=== PATIENT | male | born 1990 | race African-American/Black ===

== ENCOUNTER 2020-08-01 03:10 | Emergency (ER) | payer OTHER, SELFPAY ==
[2020-08-01 03:28] VITALS: BP 102/66; PULSE 66; RESP 18; TEMP 37.3; O2SAT 98; BMI 27.2
--- NOTE | 2020-08-01 04:16 | ED_ITS ---
HPI - Nausea/Vomiting/Diarrhea General Chief complaint: Nausea/Vomiting/Diarrhea Stated complaint: Vomiting Time Seen by Provider: 08/01/20 04:15 Source: patient Mode of arrival: ambulatory History of Present Illness HPI Narrative: 29-year-old male without significant past medical history presents with awakening with acute and persistent nausea and vomiting of multiple episodes without associated fever, chills and patient states that he has been having abdominal discomfort in the lower abdomen that causes him to be in a ? position?. In addition, patient states he has only been able to have a couple minute liquid stools and reports no flatus. Patient states that all the symptoms started after eating at [employer] on Thursday. Related Data Allergies Allergy/AdvReac Type Severity Reaction Status Date / Time No Known Drug Allergies Allergy Unknown none Verified 08/01/20 04:28 Review of Systems Review of Systems: Pertinent positives and negatives as stated in HPI 10 point review of systems is otherwise negative. PMFSH Past Medical History Source: nursing notes reviewed Medical History No known health problems Social History Social History Advance Directives: No Physical Exam Vital Signs: Vital Signs: Last Vital Signs Temp 98.7 F 08/01/20 04:41 Pulse 51 08/01/20 04:41 Resp 18 08/01/20 04:41 BP 149/76 H 08/01/20 04:41 Pulse Ox 97 08/01/20 04:41 Body Mass Index 27.2 VITAL SIGNS: Reviewed. GENERAL: Well developed, well nourished, in no acute distress. HEAD: Normocephalic/atraumatic EYES: PERRLA, EOMI OROPHARYNX: no oral lesions noted, posterior pharynx clear NECK: Supple, no adenopathy LUNGS: Normal breath sounds. No adventitious sounds or accessory muscle use. SpO2<98> CARDIOVASCULAR: Regular rate and rhythm without noted murmurs ABDOMEN: Soft, tenderness on palpation of lower abdomen without rebound, non- distended with bowel sounds. SKIN: Inspection of the skin reveals no rashes NEUROLOGIC: Alert and oriented x 4. Strength and sensation to light touch were grossly intact x 4. Course Course Course Narrative: 29-year-old male with history and clinical presentation suggestive of possible contaminated food and felt to be less likely SBO or diverticulitis. - IV fluids, antiemetics, EKG, labs, RUSH, UA, stool Signed out to Dr. Millan. MDM - Nausea/Vomiting/Diarrhea Lab Data Result diagrams: 08/01/20 04:50 08/01/20 04:50 Labs: Lab Results 08/01/20 08/01/20 Range/Units 04:50 04:50 WBC 7.9 (4.8-10.8) X10*3/uL RBC 5.87 H (4.60-5.80) X10*6/uL Hgb 15.6 (14.0-18.0) g/dl Hct 45.7 (42-52) % MCV 77.9 L (80-98) fL MCH 26.6 L (27.0-33.0) pg MCHC 34.1 (31.0-36.0) g/dl RDW 14.1 (11.0-16.0) % Plt Count 324 (160-400) X10*3/uL MPV 9.7 (9.4-12.4) fL Immature Gran % (Auto) 0.3 (0.0-0.4) % Neut % (Auto) 70.4 (45-73) % Lymph % (Auto) 22.8 (20-40) % [place] % (Auto) 6.4 (2-11) % Eos % (Auto) 0.0 (0-4) % Baso % (Auto) 0.1 (0-2) % Lymph # (Auto) 1.8 (1.2-4.9) X10*3/uL [place] # (Auto) 0.5 (0.1-1.2) X10*3/uL Eos # (Auto) 0.0 (0.0-0.4) X10*3/uL Baso # (Auto) 0.0 (0.0-0.2) X10*3/uL Abs Immat Gran (auto) 0.02 (0.00-0.03) X10*3/uL Absolute Neuts (auto) 5.6 (2.0-8.3) X10*3/uL Absolute Nucleated RBC 0.000 (0.0-0.012) X10*3/uL Nucleated RBC % (auto) 0.0 (0.0-0.2) /100WBC Sodium 141 (135-145) mmol/L Potassium 4.0 (3.3-5.1) mmol/L Chloride 104 (96-108) mmol/L Carbon Dioxide 24 (22-29) mmol/L Anion Gap 17 (12-20) BUN 13 (9-16) mg/dL Creatinine 1.34 (0.5-1.4) mg/dL Estim Creat Clear Calc 92.8 Estimated GFR > 60 Random Glucose 116 H (60-115) mg/dL Calcium 10.2 (8.4-10.2) mg/dL Total Bilirubin 1.4 H (0.0-1.0) mg/dL AST 15 (5-37) U/L ALT 18 (0-40) U/L Alkaline Phosphatase 82 (39-117) U/L Total Protein 8.6 H (6.5-8.0) g/dL Albumin 4.8 (3.5-5.0) g/dL Lipase 19 (8-78) U/L ECG Data Attestation: I personally reviewed and interpreted this ECG as follows: Prior ECG tracings: not available for review Interpretation: The sinus bradycardia, HR-48, no evidence of acute ischemia, [place]/QRS/QTC are within normal limits.
[2020-08-01 04:41] VITALS: BP 149/76; PULSE 51; RESP 18; TEMP 37.1; O2SAT 97
[2020-08-01] MEDS: 0.9 % Sodium Chloride 2,000 ML 999 ML IV (04:51)
[2020-08-01] MEDS: ondansetron HCL 4 MG/2 ML VIAL IVPUSH ×2 (04:51→08:08)
--- NOTE | 2020-08-01 04:57 | ECG_ITS ---
Test Reason : SB Blood Pressure : / mmHG Vent. Rate : 048 BPM Atrial Rate : 048 BPM P-R Int : 144 ms QRS Dur : 088 ms QT Int : 424 ms P-R-T Axes : 073 057 043 degrees QTc Int : 378 ms Sinus bradycardia Otherwise normal ECG No previous ECGs available Referred By: Halle Groves Electronically Signed By:JUANCARLOS CHEN
--- NOTE | 2020-08-01 04:58 | PC.NURSE ---
This RN notified Dr Groves of SB on front desk monitor with what appears to be peaked T waves. Per Dr Groves, EKG to be ordered
[2020-08-01 04:59] LABS: MANUAL DIFF FLAG NO
[2020-08-01 05:00] LABS: Basophils Percent Auto 0.1 % (0-2); Hematocrit 45.7 % (42-52); Hemoglobin 15.6 g/dl (14.0-18.0); Imm Gran Abs Auto 0.02 X10*3/uL (0.00-0.03); Imm Gran Pct Auto 0.3 % (0.0-0.4); Lymphocytes Absolute Auto 1.8 X10*3/uL (1.2-4.9); Lymphocytes Percent Auto 22.8 % (20-40); Mean Corpuscular HGB Conc 34.1 g/dl (31.0-36.0); Mean Corpuscular Hemoglobin 26.6 pg (27.0-33.0); Mean Corpuscular Volume 77.9 fL (80-98); Mean Platelet Volume 9.7 fL (9.4-12.4); Monocytes Absolute Auto 0.5 X10*3/uL (0.1-1.2); Monocytes Percent Auto 6.4 % (2-11); Neutrophils Absolute Auto 5.6 X10*3/uL (2.0-8.3); Neutrophils Percent Auto 70.4 % (45-73); Platelet Count 324 X10*3/uL (160-400); Red Blood Count 5.87 X10*6/uL (4.60-5.80); Red Cell Distribution Width 14.1 % (11.0-16.0); White Blood Count 7.9 X10*3/uL (4.8-10.8)
[2020-08-01 05:23] LABS: Alanine Aminotransferase 18 U/L (0-40); Albumin Level 4.8 g/dL (3.5-5.0); Alkaline Phosphatase 82 U/L (39-117); Anion Gap 17 (12-20); Aspartate Amino Transferase 15 U/L (5-37); Bilirubin Total 1.4 mg/dL (0.0-1.0); Blood Urea Nitrogen 13 mg/dL (9-16); Calcium 10.2 mg/dL (8.4-10.2); Carbon Dioxide 24 mmol/L (22-29); Chloride 104 mmol/L (96-108); Creatinine Clr Calc Pharmacy 92.8; Estimated Glomerular Filt Rate > 60; Glucose Random 116 mg/dL (60-115); Lipase 19 U/L (8-78); Sodium 141 mmol/L (135-145); Total Protein 8.6 g/dL (6.5-8.0)
--- NOTE | 2020-08-01 07:07 | PC.NURSE ---
Patient is lying in bed alert, oriented and in no distress. Patient states he feels better but remains a little nauseated. IVF's are complete. Pt asking when he is able to go home. Pt encouraged to collect a urine sample.
[2020-08-01 07:19] VITALS: BP 114/56; PULSE 46; RESP 14; TEMP 36.6; O2SAT 98
[2020-08-01 07:30] LABS: Appearance Urine HAZY; Color Urine YELLOW; Glucose Urine UA NEG (NEG); Leukocyte Esterase Urine NEG (NEG); Nitrite Urine NEG (NEG); Specific Gravity - Urine >= 1.030 (1.005-1.025); Urine Blood TRACE (NEG); Urine Ketones 40 MG/DL (NEG); Urine Protein NEG (NEG-TRACE)
[2020-08-01 07:36] LABS: Bacteria Urine TRACE /LPF; Mucus Urine 1+ /LPF; RBC Urine 0-2 /HPF (0); Squamous Epithelial Cell Urine 3+ /LPF
[2020-08-01 07:41] VITALS: BP 108/63; PULSE 46; RESP 14; O2SAT 100
[2020-08-01] MEDS: 0.9 % Sodium Chloride 1,000 ML 999 ML IVCONT (08:07)
[2020-08-01 08:08] LABS: Amphetamine Screen Urine Not Detected (Not Detect); Barbiturates, Urine Not Detected (Not Detect); Benzodiazepines Screen Urine Not Detected (Not Detect); Cannabinoid Screen Urine POSITIVE (Not Detect); Cocaine Screen Urine Not Detected (Not Detect); Opiate Screen Urine Not Detected (Not Detect); Phencyclidine Screen Urine Not Detected (Not Detect)
[2020-08-01 08:54] VITALS: BP 146/80; PULSE 47; RESP 12; O2SAT 97
--- NOTE | 2020-08-01 09:32 | PC.NURSE ---
IVF's complete. Pt states nausea and pain have improved. Heplock removed and pressure bandage applied. discharge instructions given to pt who verbalized understanding and denies any questions. Pt is amb to exit in no distress
== END 2020-08-01 08:48 | disposition home or self-care (01) ==
PROVIDERS: Emergency Provider Student in an Organized Health Care Education/Training Program; PCP Internal Medicine
DX: R11.2 Nausea with vomiting, unspecified (principal); R19.7 Diarrhea, unspecified; Z79.899 Other long term (current) drug therapy
CPT/HCPCS: 36415; 80053; 80307; 81001; 83690; 85025; 93005; 96365; 96375; 96376; 99285; J2405

== ENCOUNTER 2022-01-19 16:06 | Emergency (ER) | payer OTHER, SELFPAY ==
[2022-01-19 16:19] VITALS: BP 130/102; PULSE 80; RESP 18; TEMP 36.9; O2SAT 100; BMI 23.7
[2022-01-19 16:42] LABS: Hematocrit 45.3 % (42.0-52.0); Hemoglobin 15.2 g/dl (14.0-18.0); Mean Corpuscular HGB Conc 33.6 g/dl (31.0-36.0); Mean Corpuscular Hemoglobin 26.1 pg (27.0-33.0); Mean Corpuscular Volume 77.8 fL (80.0-98.0); Mean Platelet Volume 9.8 fL (9.4-12.4); Platelet Count 337 X10*3/uL (160-400); Red Blood Count 5.82 X10*6/uL (4.60-5.80); Red Cell Distribution Width 13.5 % (11.0-16.0); White Blood Count 6.7 X10*3/uL (4.8-10.8)
[2022-01-19 17:04] LABS: COVID-19 Test Negative (Negative); IDNOW Serial# 16C4AD1C
[2022-01-19 17:06] LABS: Alanine Aminotransferase 24 U/L (0-40); Albumin Level 4.8 g/dL (3.5-5.0); Alkaline Phosphatase 66 U/L (39-117); Anion Gap 20 (12-20); Aspartate Amino Transferase 22 U/L (5-37); Bilirubin Direct 0.4 mg/dL (0.0-0.5); Blood Urea Nitrogen 14 mg/dL (9-16); Calcium 10.1 mg/dL (8.4-10.2); Carbon Dioxide 20 mmol/L (22-29); Chloride 104 mmol/L (96-108); Creatinine Clr Calc Pharmacy 100.1; Estimated Glomerular Filt Rate > 60; Glucose Random 127 mg/dL (60-115); Lipase 14 U/L (8-78); Potassium 3.9 mmol/L (3.3-5.1); Sodium 140 mmol/L (135-145); Total Protein 8.3 g/dL (6.5-8.0)
== END 2022-01-19 20:11 | disposition left against medical advice (07) ==
PROVIDERS: Emergency Medicine Emergency Medical Services; Emergency Provider Emergency Medicine; PCP Internal Medicine
DX: K08.89 Other specified disorders of teeth and supporting structures (principal); Z20.822 Contact with and (suspected) exposure to COVID-19; Z79.899 Other long term (current) drug therapy
CPT/HCPCS: 80048; 80076; 83690; 85027; 87635; 99281; 99282